=== PATIENT | female | born 1975 | race Caucasian/White ===

== ENCOUNTER → 2019-01-22 | Outpatient (CLI) | payer OTHER ==
[~2019-01-22] MED LIST: ABIL1TAB13 PO; EFFE150C2 PO; EFFE75CA2 PO; EFFEXOR; EFFEXOR XR PO; NORV5TAB PO; PRENTAB8; REXU1TAB4 PO; TRAZ1TAB6 PO; VITAMIN D2 PO
--- NOTE | 2019-01-29 09:35 | SLEEPHOME ---
DATE OF THE STUDY: 01/22/2019 ORDERED BY: Christina Johnson Diagnostic home sleep testing was performed due to concern for the obstructive sleep apnea syndrome. For testing a nocturnal T3 respiratory monitoring device was used. Continuous record was made of pulse, oxygen saturation, airflow, chest and abdominal strain, and body position. 9 hours and 59 minutes of data were reviewed. There were 6 hours and 39 minutes marked as time in bed. During the interval marked time in bed, there were 131 respiratory events identified of 10 seconds in duration or greater for a respiratory event index of 19.7. Baseline saturation was 94%. Saturations fell as low as 73%. Testing was performed in both the supine and nonsupine positions. IMPRESSION: Abnormal home sleep testing with repetitive respiratory events and oxygen desaturations to 73% with a respiratory event index of 19.7 is consistent with the obstructive sleep apnea syndrome. RECOMMENDATIONS: The patient should be referred for a formal sleep evaluation.
== END ==
LOC: M SLEEP HO 10:03
PROVIDERS: ATTEND Nurse Practitioner Family
DX: R79.81 Abnormal blood-gas level (principal)